=== PATIENT | female | born 1985 | race African-American/Black ===

== ENCOUNTER 2023-12-14 10:33 | Emergency (ER) | payer MEDICAID ==
[~2023-12-14] VITALS: Ht 162.6 cm; Wt 68.2 kg
[2023-12-14 10:39] VITALS: BP 126/86; PULSE 110; RESP 18; TEMP 98.2; O2SAT 99
[2023-12-14] MEDS: IBUPROFEN 400 MG TABLET PO ONE (12:36)
[2023-12-14] MEDS: METHOCARBAMOL 500 MG TABLET PO ONE (12:36)
[2023-12-14] MEDS: ACETAMINOPHEN 325 MG TABLET PO ONE (12:36)
[2023-12-14] MEDS ORDERED: METH-812 PO (12:54)
== END 2023-12-14 13:01 | disposition home or self-care (01) ==
LOC: EMS 10:45
DX: M25.561 Pain in right knee (principal); R51.9 Headache, unspecified; V43.52XA Car driver injured in collision with other type car in traffic accident, initial encounter; Y93.89 Activity, other specified; Y92.410 Unspecified street and highway as the place of occurrence of the external cause; Y99.8 Other external cause status
CPT/HCPCS: 99284; Z7502; Z7610